=== PATIENT | female | born 1990 | race Caucasian/White ===

== ENCOUNTER 2016-06-05 15:30 | Inpatient (IN) | payer OTHER, MEDICAID ==
--- NOTE | 2016-06-05 16:17 | EDPHY ---
H & P Time Seen by Provider: 06/05/16 16:17 HPI/ROS: CHIEF COMPLAINT: Suicidal thoughts, here for evaluation for ECT HISTORY OF PRESENT ILLNESS: Patient is had previous electroconvulsive therapy. Having suicidal thoughts and not sleeping, asked to come to the emergency department by Dr. Montana for evaluation. No medical complaints except for some sneezing or runny nose from a allergies. She has a history of having manic episodes leading to possible overdose. She denies overdose today. She is worried that she is heading toward [place] and so presents for treatment. REVIEW OF SYSTEMS: Eye: no change in vision ENT: no sore throat Cardiac: no chest pain or syncope Pulmonary: no cough or SOB Abdomen: no vomiting, diarrhea, abdominal pain Musculoskeletal: no back pain Skin: no rash Neuro: no headache Constitutional: no fever : no urinary symptoms A comprehensive 10 point review of systems is otherwise negative aside from elements mentioned in the history of present illness. PAST MEDICAL HISTORY: Bipolar disorder and, depression. Tonsillectomy, cholecystectomy, cervical spine surgery in June of last year. Social history: No alcohol or drugs today. General Appearance: Alert and conversant, cooperative. Eyes: No scleral icterus. ENT, Mouth: Normal mucous membranes. Respiratory: Normal respiratory effort, breath sounds equal, lungs are clear to auscultation. Cardiovascular: Regular rate and rhythm. Gastrointestinal: Abdomen is soft and non tender. Neurological: Alert and oriented x3. Normally conversant. Face symmetric, normal movement and sensation in all extremities. Skin: Warm and dry, no rashes. Musculoskeletal: No peripheral edema and no joint swelling. Psychiatric: Not agitated. Admits to not sleeping, some suicidal ideation, no plan, no overdose, no hallucinations. Emergency Department course/MDM: Evaluated from [facility] by Laurie, plan to admit to [facility] for ECT. 1720: Patient placed on a mental health hold by myself conjunction with mental health project management consultant for racing thoughts, not sleeping, suicidal ideation. The patient will be transferred to [facility] for inpatient psychiatric hospital bed not available at this facility, in stable condition; accepting physician is Dr. Prince per Laurie. Smoking Status: Never smoked Constitutional: Initial Vital Signs Temperature (C) 36.6 C 06/05/16 15:35 Heart Rate 108 H 06/05/16 15:35 Respiratory Rate 17 06/05/16 15:35 Blood Pressure 142/91 H 06/05/16 15:35 O2 Sat (%) 96 06/05/16 15:35 O2 Delivery Mode Room Air Allergies/Adverse Reactions: ketorolac tromethamine [From Toradol] Allergy (Intermediate, Verified 06/05/16 15:34) Penicillins Allergy (Intermediate, Verified 06/05/16 15:34) sumatriptan succinate [From Imitrex] Allergy (Intermediate, Verified 06/05/16 15 :34) Home Medications: Medication Instructions Recorded Metformin HCl [Metformin 1000 mg] 1,000 mg PO BIDMEAL 09/06/15 Pantoprazole Sodium [Protonix 40mg 40 mg PO DAILY #0 tab 11/23/15 (*)] Doxepin HCl 75 mg PO HS 06/05/16 Herbals/Supplements -Info Only 1 ea PO DAILY 06/05/16 Hydrocodone/Acetaminophen [[place] 1 - 2 tab PO Q6H PRN 06/05/16 5/325 (*)] Quetiapine Fumarate [Seroquel] 800 mg PO HS 06/05/16 Medical Decision Making Differential Diagnosis: Differential diagnosis considered for depression including functional and major depression, situational depression, medication side effect, drugs and alcohol abuse. - Data Points Laboratory Results: Laboratory Results 06/05/16 16:40 06/05/16 16:40 06/05/16 06/05/16 06/05/16 16:40 16:40 16:40 WBC RBC Hgb Hct MCV MCH MCHC RDW Plt Count MPV Neut % (Auto) Lymph % (Auto) [place] % (Auto) Eos % (Auto) Baso % (Auto) Nucleat RBC Rel Count Absolute Neuts (auto) Absolute Lymphs (auto) Absolute Monos (auto) Absolute Eos (auto) Absolute Basos (auto) Absolute Nucleated RBC Immature Gran % Immature Gran # Sodium 141 mEq/L mEq/L (134-144) Potassium 4.4 mEq/L mEq/L (3.5-5.2) Chloride 104 mEq/L mEq/L (97-110) Carbon Dioxide 26 mEq/l mEq/l (22-31) Anion Gap 11 mEq/L mEq/L (8-16) BUN 10 mg/dL mg/dL (7-23) Creatinine 0.9 mg/dL mg/dL (0.6-1.0) Estimated GFR > 60 Glucose 98 mg/dL mg/dL (70-100) Calcium 10.4 mg/dL mg/dL (8.5-10.4) Beta HCG, Qual NEGATIVE Urine Test Salicylates < 1.0 mg/dL L mg/dL (2.0-20.0) Urine Opiates Screen Acetaminophen < 10 mcg/mL L mcg/mL (10.0-30.0) Urine Barbiturates Ur Phencyclidine Scrn Ur Amphetamine Screen U Benzodiazepines Scrn Urine Cocaine Screen U Marijuana (THC) Screen Ethyl Alcohol < 10 mg/dL mg/dL (0-10) 06/05/16 06/05/16 06/05/16 16:40 15:35 15:35 WBC 4.98 10^3/uL 10^3/uL (3.80-9.50) RBC 4.90 10^6/uL 10^6/uL (4.18-5.33) Hgb 14.9 g/dL g/dL (12.6-16.3) Hct 43.4 % % (38.0-47.0) MCV 88.6 fL fL (81.5-99.8) MCH 30.4 pg pg (27.9-34.1) MCHC 34.3 g/dL g/dL (32.4-36.7) RDW 12.2 % % (11.5-15.2) Plt Count 352 10^3/uL 10^3/uL (150-400) MPV 10.1 fL fL (8.7-11.7) Neut % (Auto) 55.9 % % (39.3-74.2) Lymph % (Auto) 36.3 % % (15.0-45.0) [place] % (Auto) 6.6 % % (4.5-13.0) Eos % (Auto) 0.4 % L % (0.6-7.6) Baso % (Auto) 0.6 % % (0.3-1.7) Nucleat RBC Rel Count 0.0 % % (0.0-0.2) Absolute Neuts (auto) 2.78 10^3/uL 10^3/uL (1.70-6.50) Absolute Lymphs (auto) 1.81 10^3/uL 10^3/uL (1.00-3.00) Absolute Monos (auto) 0.33 10^3/uL 10^3/uL (0.30-0.80) Absolute Eos (auto) 0.02 10^3/uL L 10^3/uL (0.03-0.40) Absolute Basos (auto) 0.03 10^3/uL 10^3/uL (0.02-0.10) Absolute Nucleated RBC 0.00 10^3/uL 10^3/uL (0-0.01) Immature Gran % 0.2 % % (0.0-1.1) Immature Gran # 0.01 10^3/uL 10^3/uL (0.00-0.10) Sodium Potassium Chloride Carbon Dioxide Anion Gap BUN Creatinine Estimated GFR Glucose Calcium Beta HCG, Qual Urine Test NEGATIVE Salicylates Urine Opiates Screen NEGATIVE (NEGATIVE) Acetaminophen Urine Barbiturates NEGATIVE (NEGATIVE) Ur Phencyclidine Scrn NEGATIVE (NEGATIVE) Ur Amphetamine Screen NEGATIVE (NEGATIVE) U Benzodiazepines Scrn NEGATIVE (NEGATIVE) Urine Cocaine Screen NEGATIVE (NEGATIVE) U Marijuana (THC) Screen NEGATIVE (NEGATIVE) Ethyl Alcohol Departure - Departure Disposition: [facility] IP Clinical Impression: Severe major depression Bipolar disorder Qualifiers: Active/Remission status: currently active Current bipolar episode type: manic Current episode severity: moderate Qualified Code(s): F31.12 - Bipolar disorder , current episode manic without psychotic features, moderate Condition: Fair Referrals: NIA HENRANDEZ [Other] - As per Instructions
[2016-06-05 17:01] LABS: ANION GAP 11 mEq/L (8-16); CALCIUM 10.4 mg/dL (8.5-10.4); CARBON DIOXIDE 26 mEq/l (22-31); CHLORIDE 104 mEq/L (97-110); CREATININE 0.9 mg/dL (0.6-1.0); ETHANOL SERUM < 10 mg/dL (0-10); GLOMERULAR FILTRATION RATE > 60; GLUCOSE 98 mg/dL (70-100); POTASSIUM 4.4 mEq/L (3.5-5.2); SODIUM 141 mEq/L (134-144)
[2016-06-05 17:10] LABS: % IMMATURE GRANULYOCYTES 0.2 % (0.0-1.1); ABSOLUTE IMMATURE GRANULOCYTES 0.01 10^3/uL (0.00-0.10); ADD DIFF? NO; ADD MORPH? NO; ADD SCAN? NO; ATYPICAL LYMPHOCYTE FLAG 10 (0-99); FRAGMENT RBC FLAG 0 (0-99); HEMATOCRIT 43.4 % (38.0-47.0); HEMOGLOBIN 14.9 g/dL (12.6-16.3); LEFT SHIFT FLG 0 (0-99); LIPEMIA HEMOLYSIS FLAG 90 (0-99); MEAN CELL HEMOGLOBIN 30.4 pg (27.9-34.1); MEAN CELL HEMOGLOBIN CONCENTR. 34.3 g/dL (32.4-36.7); MEAN CELL VOLUME 88.6 fL (81.5-99.8); MEAN PLATELET VOLUME 10.1 fL (8.7-11.7); PLATELET CLUMPS FLAG 0 (0-99); PLATELET COUNT 352 10^3/uL (150-400); RED CELL DISTRIBUTION WIDTH 12.2 % (11.5-15.2)
[2016-06-05 17:34] LABS: SALICYLATE < 1.0 mg/dL (2.0-20.0)
[2016-06-05] MEDS: metFORMIN HCL 500 MG TAB PO SCH (20:14)
[2016-06-05] MEDS ORDERED: DOXEPIN HCL 25 MG CAP PO SCH (21:00)
[2016-06-05] MEDS ORDERED: QUEtiapine FUMARATE 200 MG TAB PO SCH (21:00)
[2016-06-05] MEDS ORDERED: DOXEPIN HCL 50 MG CAP PO SCH (21:00)
[2016-06-06] MEDS: PANTOPRAZOLE SODIUM 40 MG TAB PO SCH (08:11)
[2016-06-06] MEDS: metFORMIN HCL 500 MG TAB PO SCH ×2 (08:12→17:04)
[2016-06-06] MEDS ORDERED: NS 1,000 ML IV ONE (09:58)
[2016-06-06] MEDS ORDERED: LIDOCAINE 2% 5 ML SDV ID ONE (09:58)
[2016-06-06] MEDS ORDERED: ONDANSETRON DISINTEGRATING 4 MG TAB PO ONE (09:58)
[2016-06-06] MEDS ORDERED: CITRIC ACID/SODIUM CITRATE 30 ML UDCUP PO ONE (09:58)
[2016-06-06] MEDS ORDERED: HYDROCODONE/APAP 5/325 TAB PO PRN (13:01)
[2016-06-06] MEDS ORDERED: FLUTICASONE NASAL 120 SPRAYS/16 GM MDI EACHNARE SCH (14:30)
--- NOTE | 2016-06-06 16:06 | BAPA ---
[f rep st] ADMISSION PSYCHIATRIC ASSESSMENT IDENTIFYING DATA: The patient is a 26-year-old, white, single female living with her mother in [place], who is well known to this group underwriter having treated her for maintenance ECT for approximately 4 years. Her last psychiatrist has been John Paul Cheema MD, but she may be in transition with a plan to obtain her care at [facility] nearer to her home. She has multiple prior inpatient psychiatric hospitalizations. HISTORY OF PRESENT ILLNESS: Please see the group underwriter's last admission workup dated 11/19/2015 and discharge summary dated 11/24/2015. This patient has longstanding and chronic comorbidities including bipolar illness, substance use disorder, pain disorder associated with psychological factors and general medical condition, PTSD, and cluster B personality traits. There is perhaps some factitious symptomatology in this group underwriter's opinion as well. However, she presents now reporting an increase in bipolar symptoms including global insomnia, racing thoughts, and feeling "out of control" around suicidal thinking. She does have a history of self-harm. She has been complaining over the last number of weekly maintenance ECT treatments that she has been having increasing insomnia. Her sleep is never well, but it can go from bad to worse in my experience working with her and when it does so, it is often accompanied by a sense of desperation for which she feels the only reliable remedy is acute ECT. I would agree with her that trying to find a remedy in the form of medication would be difficult as she has been on numerous combinations of high dose mood-stabilizing agents, some of those combinations having been, in this group underwriter's opinion, frankly unsafe as well. There is no clear trigger to this exacerbation situationally. She does report, however, an uptick in her nightmares that are arguably consistent with her trauma history. She reports compliance with her medication which has included Seroquel 800 mg a day, doxepin 75 mg a day, along with her Protonix, steroid nasal spray, and metformin 1000 mg b.i.d. She uses Zofran and promethazine for nausea with each ECT treatment and [place] up to 6 tablets with each treatment. She denies any change in her medical status at the moment reflective of something that could be exacerbating her central nervous system pathology. Notably, she is absent of severe daily headaches or visual changes that would be consistent with her historic diagnosis of pseudotumor cerebri. She denies substance use at the moment and urine toxicology was negative. PAST MEDICAL, PSYCHIATRIC, SOCIAL, FAMILY, AND SUBSTANCE ABUSE HISTORY: Please see prior psychiatric evaluations. MENTAL STATUS EXAM: The patient is a 26-year-old, white female who appears her stated age. Usually at her baseline, she is well groomed with great attention to hygiene and makeup but presently appears somewhat unkempt and not well dressed as usual. Her affect is more constricted with some psychomotor slowing and she has diminished eye contact and more impoverished speech which is also monotonous in tone. She is otherwise pleasant and cooperative. She does endorse suicidal ideation with vague planning around cutting or overdose. Thought processes are goal directed. There is no delusional material or hallucinations. Judgment and insight are fair. Impulse control is fair. She is alert and oriented x3 with some subjective impairment in attention and short- term memory. ADMITTING DIAGNOSIS: [place] I: Bipolar 2 disorder, mixed/depressed, without psychotic features; history of substance use disorder in remission; post-traumatic stress disorder; pain disorder associated with psychological factors and general medical condition; primary insomnia; rule out a component of factitious disorder. [place] II: Cluster B traits. [place] III: History of pseudotumor cerebri, chronic daily headache, gastroesophageal reflux disease, polycystic ovarian syndrome, asthma. IMPRESSION/RECOMMENDATION: Once again, although this patient has numerous comorbidities that make one unable to diagnose her present state with clarity, I must give "the benefit of the doubt" to this representing in part an exacerbation of her bipolar mood illness which does historically respond well to a short burst of acute ECT treatments. She does have more objective indicators as seen in mental status exam for depressed mood. Her sleep issues, however, are chronic, but they do experience true and substantial exacerbations on top of baseline poor sleep that no medication thus far has helped her with. She asserts that she has tried other behavioral interventions and sleep hygiene to no avail. Her medications as they stand have proved inadequate to prevent this relapse of symptoms or certainly aid with sleep. Given her history of a syncopal episode in this last year that to this day does not have a definitive diagnosis attached to it, I am loath to increase any of her medications, especially ones that could be arrhythmogenic such as Seroquel or doxepin. In fact, the patient is more than willing to let me reduce the dose of those medications. I will reduce Seroquel to 600 mg at night and doxepin from 75 to 25 mg. She might indeed still be a candidate for clozapine but continues to be reluctant to try that medication. /[id number]/MODL MTDD
--- NOTE | 2016-06-06 16:47 | BCON ---
[f rep st] BEHAVIORAL [facility] CONSULTATION INTERNAL MEDICINE CONSULTATION DATE OF CONSULTATION: 06/06/2016 REFERRING PHYSICIAN: Merced Prince MD REASON FOR REFERRAL: Medical clearance for inpatient advanced surgical hospital stay. HISTORY OF PRESENT ILLNESS: The patient came to the [facility] emergency department from [place] for admission to [facility] for electroconvulsive therapy, which she has regularly as an outpatient for depressive symptoms of bipolar disorder. She was having increased suicidal thoughts and her psychiatrist, Dr. Montana, thought that she should come for more ECT. She currently complains of some head congestion, which she thinks is due to seasonal allergies. [place] She usually uses fluticasone, but she did not bring it with her this time. PAST MEDICAL HISTORY: 1. Bipolar disorder. 2. Seasonal allergic rhinitis. 3. Chronic headaches. 4. Polycystic ovarian syndrome. PAST SURGICAL HISTORY: She has had a cholecystectomy, and a cervical diskectomy which failed to resolve her headaches. ALLERGIES: There are allergies listed to Toradol, penicillin, and sumatriptan. SOCIAL HISTORY: She lives with her grandmother in [place]. She has a history of alcohol abuse. She denies any tobacco use. She reports that she is on disability for bipolar disorder. FAMILY HISTORY: Noncontributory. REVIEW OF SYSTEMS: Other than symptoms of seasonal allergies, a 10-point review of systems was negative. PHYSICAL EXAMINATION: VITAL SIGNS: Blood pressure is 121/73, heart rate is 99 , respiratory rate is 16, oxygen saturation is 96% on room air. Temperature is 36.2 degrees centigrade. Her weight is 67 kg for a body mass index of 24.6. GENERAL: This is a well-nourished, well-developed woman, cooperative and in no acute distress. HEENT: Extraocular movements are intact. Pupils are equal, round, and reactive to light. Mucous membranes are moist. Dentition is in good condition. NECK: Supple. HEART: There is a regular rate and rhythm with no murmurs, rubs, or gallops. LUNGS: Clear to auscultation bilaterally. ABDOMEN: Soft, nontender, nondistended, with normoactive bowel sounds. EXTREMITIES: There is no cyanosis, clubbing, or edema. NEUROLOGIC: She is alert and oriented x3. Cranial nerves 2-12 are grossly intact. There is no focal weakness and sensation is intact to light touch. LABORATORY STUDIES: From the emergency department, CBC was overall within normal limits. She had a very slight decrement of absolute eosinophils at 0.02. Serum chemistry revealed normal renal function and electrolytes. Beta hCG was negative for in the serum as well as the urine. Toxicology screen in the urine was negative for any substances of abuse and the serum was negative for salicylates, acetaminophen, or ethyl alcohol. ASSESSMENT/RECOMMENDATIONS: 1. Mental health issues. Pending further evaluation and management per Psychiatry and the mental health team. She has had her first ECT treatment today. 2. Seasonal allergies. I will order fluticasone nasal spray, which she reports helps control these symptoms. I see no medical contraindications to the patient's continued stay in the inpatient behavioral health unit or to any psychiatric medications or procedures. Thank you very much for including me in the care of the patient, and please do not hesitate to contact me or the hospitalist service should there be need for further medical evaluation. /[id number]/MODL MTDD
[2016-06-06] MEDS: QUEtiapine FUMARATE 200 MG TAB PO SCH (17:03)
[2016-06-06] MEDS: DOXEPIN HCL 25 MG CAP PO SCH (17:17)
[2016-06-07] MEDS: FLUTICASONE NASAL 120 SPRAYS/16 GM MDI EACHNARE SCH (07:51)
[2016-06-07] MEDS: metFORMIN HCL 500 MG TAB PO SCH ×2 (07:52→17:17)
[2016-06-07] MEDS: PANTOPRAZOLE SODIUM 40 MG TAB PO SCH (07:53)
[2016-06-07] MEDS ORDERED: HYDROCODONE/APAP 5/325 TAB PO ONE (08:30)
[2016-06-07] MEDS: IBUPROFEN 600 MG TAB PO PRN (09:59)
--- NOTE | 2016-06-07 16:52 | SOAPPROG ---
SOAP Progress Note Assessment/Plan: Assessment: Plan: 06/07/16 16:53 Improving. CCM. ECT tomorrow. D/c plan per primary team. Subjective: Pt seen, discussed with staff and Dr. Montana, chart reviewed. She reports feeling better today. C/o h/a, received one dose of Amor[place] this morning. Slept well last night per staff report. Tolerated med changes well. Anticipating ECT tomorrow. She is unsure if she will be ready for d/c tomorrow. Objective: Vital Signs Temp Pulse Resp BP Pulse Ox 36.8 C 98 12 106/63 95 06/07/16 06:00 06/07/16 06:00 06/07/16 06:00 06/07/16 06:00 06/07/16 06:00 MSE: Calm, coop. Affect is blunted, stable. Mood is "pretty good." TP linear. TC reveals no psychosis. SI persists, but "less." - Time Spent With Patient Time Spent With Patient: 15" ICD10 Worksheet Patient Problems: Problems Problem Status Onset Bipolar disorder Acute Severe major depression Acute Acute electrocardiogram changes Acute Bipolar 2 disorder Acute Evaluation by medical service required Acute Narcotic overdose Acute Suicidal ideation Acute
[2016-06-07] MEDS: QUEtiapine FUMARATE 200 MG TAB PO SCH (17:17)
[2016-06-07] MEDS: DOXEPIN HCL 25 MG CAP PO SCH (17:17)
[2016-06-08] MEDS ORDERED: CITRIC ACID/SODIUM CITRATE 30 ML UDCUP PO ONE (04:00)
[2016-06-08] MEDS ORDERED: LIDOCAINE 2% 5 ML SDV ID ONE (04:00)
[2016-06-08] MEDS ORDERED: NS 1,000 ML IV ONE (04:00)
[2016-06-08] MEDS ORDERED: PROMETHAZINE HCL 25 MG TAB PO ONE (04:00)
[2016-06-08] MEDS ORDERED: ONDANSETRON DISINTEGRATING 4 MG TAB PO ONE (04:00)
[2016-06-08] MEDS ORDERED: MIDAZOLAM 2 MG/2 ML VIAL ONE (06:54)
[2016-06-08] MEDS ORDERED: fentaNYL 100 MCG/2 ML INJ ONE (06:54)
[2016-06-08] MEDS ORDERED: KETAMINE 100 MG/10 ML SYR IVP ONE (06:55)
[2016-06-08] MEDS ORDERED: LORazepam 2 MG/ML INJ ONE (06:56)
[2016-06-08] MEDS ORDERED: ONDANSETRON 4 MG/2 ML VIAL ONE (06:56)
[2016-06-08] MEDS ORDERED: PROMETHAZINE HCL 25 MG TAB PO PRN (11:14)
--- NOTE | 2016-06-08 11:34 | SOAPPROG ---
SOAP Progress Note Assessment/Plan: Assessment: Bipolar II, mixed. H/o Substance Use disorder, PTSD; Cluster B traits; r/o Pain D/O; R/o factitious d/o Plan:Pt tolerated reduction in seroquel and doxepin with only c/o being a bit of increase in sleep latency, but actually slept better, likely due to the salubrious effects of monday's ECT. Hdez is down today to mid 20s. Still endorsing SI but less intense .Will plan to do one more acute ECT on monday. 06/08/16 11:21 Objective: Vital Signs Temp Pulse Resp BP Pulse Ox 36.7 C 88 14 115/72 100 06/08/16 06:00 06/08/16 06:00 06/08/16 06:00 06/08/16 06:00 06/08/16 06:00 ICD10 Worksheet Patient Problems: Problems Problem Status Onset Bipolar disorder Acute Severe major depression Acute Acute electrocardiogram changes Acute Bipolar 2 disorder Acute Evaluation by medical service required Acute Narcotic overdose Acute Suicidal ideation Acute
[2016-06-08] MEDS: PANTOPRAZOLE SODIUM 40 MG TAB PO SCH (13:32)
[2016-06-08] MEDS: metFORMIN HCL 500 MG TAB PO SCH ×2 (13:32→17:14)
[2016-06-08] MEDS: FLUTICASONE NASAL 120 SPRAYS/16 GM MDI EACHNARE SCH (14:05)
[2016-06-08] MEDS: HYDROCODONE/APAP 5/325 TAB PO PRN (16:05)
[2016-06-08] MEDS: DOXEPIN HCL 25 MG CAP PO SCH (18:57)
[2016-06-08] MEDS: QUEtiapine FUMARATE 200 MG TAB PO SCH (18:57)
[2016-06-09] MEDS: metFORMIN HCL 500 MG TAB PO SCH ×2 (08:40→18:42)
[2016-06-09] MEDS: FLUTICASONE NASAL 120 SPRAYS/16 GM MDI EACHNARE SCH (08:41)
[2016-06-09] MEDS: PANTOPRAZOLE SODIUM 40 MG TAB PO SCH (08:41)
[2016-06-09] MEDS: HYDROCODONE/APAP 5/325 TAB PO PRN (08:44)
--- NOTE | 2016-06-09 13:26 | SOAPPROG ---
SOAP Progress Note Assessment/Plan: Assessment: Bipolar II, mixed. H/o Substance Use disorder, PTSD; Cluster B traits; r/o Pain D/O; R/o factitious d/o Plan:Pt tolerated reduction in seroquel and doxepin with only c/o being a bit of increase in sleep latency, but actually slept better, likely due to the salubrious effects of monday's ECT. Hdez is down today to mid 20s. Still endorsing SI but less intense .Will plan to do one more acute ECT on monday. 06/08/16 11:21 06/09/16 13:24 Pt interviewed while walking on unit. She had improved sleep, despite decrease in meds, declaring ECT to be the reason for change. Decreased SI, brightening of her contsricted affect. Wishes to undergo one more ECT then d/c home with plans to resume her weekly ECT. Objective: Vital Signs Temp Pulse Resp BP Pulse Ox 36.4 C 81 15 107/61 98 06/09/16 06:00 06/09/16 06:00 06/09/16 06:00 06/09/16 06:00 06/09/16 06:00 ICD10 Worksheet Patient Problems: Problems Problem Status Onset Bipolar disorder Acute Severe major depression Acute Acute electrocardiogram changes Acute Bipolar 2 disorder Acute Evaluation by medical service required Acute Narcotic overdose Acute Suicidal ideation Acute
[2016-06-09] MEDS: IBUPROFEN 600 MG TAB PO PRN (14:35)
[2016-06-09] MEDS: QUEtiapine FUMARATE 200 MG TAB PO SCH (18:42)
[2016-06-09] MEDS: DOXEPIN HCL 25 MG CAP PO SCH (18:46)
[2016-06-09] MEDS ORDERED: ONDANSETRON DISINTEGRATING 4 MG TAB PO ONE (19:00)
[2016-06-10] MEDS ORDERED: PROMETHAZINE HCL 25 MG TAB PO ONE (04:00)
[2016-06-10] MEDS ORDERED: ONDANSETRON DISINTEGRATING 4 MG TAB PO ONE (04:00)
[2016-06-10] MEDS ORDERED: NS 1,000 ML IV ONE (04:00)
[2016-06-10] MEDS ORDERED: LIDOCAINE 2% 5 ML SDV ID ONE (04:00)
[2016-06-10] MEDS ORDERED: CITRIC ACID/SODIUM CITRATE 30 ML UDCUP PO ONE (04:00)
[2016-06-10] MEDS ORDERED: PROMETHAZINE HCL 25 MG TAB ONE (08:33)
[2016-06-10] MEDS ORDERED: ONDANSETRON DISINTEGRATING 4 MG TAB ONE (08:33)
[2016-06-10] MEDS ORDERED: CITRIC ACID/SODIUM CITRATE 30 ML UDCUP ONE (08:34)
[2016-06-10] MEDS ORDERED: PROMETHAZINE HCL 25 MG TAB PO PRN (09:02)
[2016-06-10] MEDS ORDERED: HYDROCODONE/APAP 5/325 TAB PO PRN (09:02)
[2016-06-10] MEDS ORDERED: ONDANSETRON DISINTEGRATING 4 MG TAB PO PRN (09:02)
[2016-06-10] MEDS ORDERED: HYDROCODONE/APAP 5/325 TAB ONE (09:53)
[2016-06-10] MEDS: PANTOPRAZOLE SODIUM 40 MG TAB PO SCH (09:54)
[2016-06-10] MEDS: metFORMIN HCL 500 MG TAB PO SCH (09:54)
[2016-06-10 10:33] VITALS: RESP 14; TEMP 97.5
[2016-06-10] MEDS: FLUTICASONE NASAL 120 SPRAYS/16 GM MDI EACHNARE SCH (11:23)
--- NOTE | 2016-06-10 11:24 | BDS ---
[f rep st] BEHAVIORAL HEALTH DISCHARGE SUMMARY IDENTIFYING DATA: The patient is a 26-year-old white single female, living with her mother in [place], who is well-known to this jingle writer, having treated her for maintenance ECT for approximatel y 4 years. Her last psychiatrist had been John Paul Cheema MD. She has had multiple prior inpatient ps ychiatric hospitalizations. She was admitted on 06/05/2016, and discharged today 06/10/2016. REASON FOR ADMISSION: The patient reports an increase in bipolar symptoms including global insomnia , racing thoughts, and feeling out of control around suicidal thinking. She does have a history of s elf-harm and suicide attempts. Medications have historically not aided her when she has had these ex acerbations, and indeed the jingle writer has expressed to her that she is on, in my opinion, too high of d osages of medications, some of which could have contributed to a syncopal event a number of months a go. We determined that we would use the hospitalization for brief course of acute ECT and to reduce some of those medications. History and physical provided by Vlad Almanza, which revealed: 1. Mental health issues. 2. Seasonal allergies. I will order fluticasone nasal spray. LABORATORY DATA: Routine lab work: Patient's CBC and biochemical profile were within normal limits, beta HCG was negative. Urine toxicology was negative. HOSPITAL COURSE: It was decided that her Seroquel at 800 mg should be reduced to 600 given its meta bolic side effects and its effects on QT interval. Likewise, doxepin was at 75 mg per her outpatient psychiatrist, who she will probably no longer be seeing. The jingle writer also was concerned about arrhyt hmogenic effects of that medication, and it is more than an ideal sleeper with pure antihistamine ef fects at a lower dose such as 25 mg, hence, this medication was reduced to 25 mg. We then proceeded to do 3 acute ECTs during this stay. Even after her first treatment she reported a reduction in suic idal intensity, and reduction in middle insomnia. She is still having trouble falling asleep, but wa s more able to stay asleep. This persisted and improved over the week. Racing thoughts and agitation improved. DISCHARGE MEDICATIONS: Doxepin 25 mg p.o. at bedtime, Craig 5/325, 1-2 tablets p.o. q.4 hours p.r.n . headache on ECT days, Phenergan 25 mg p.o. q.6 hours p.r.n. nausea or vomiting on ECT days, pantop razole 40 mg p.o. daily, Seroquel 600 mg p.o. at bedtime. DISPOSITION: The patient will return home to [place] where her mother lives. She will need 2 4/7 supervision for at least 2-3 days given a short course of acute treatments that may have impaire d cognition. I would have her not drive for up to a week. She is to return for her next maintenance ECT treatment in 5 days, on Monday, June 15, 2016. DISCHARGE DIAGNOSES: [place] I: Bipolar 2 disorder, mixed/depressed, without psychotic features; history of substance use di [place], in remission. Posttraumatic stress disorder, pain disorder associated with psychological fac tors and general medical condition. Primary insomnia, rule out component of factitious disorder. [place] II: Cluster B traits. [place] III: History of pseudotumor cerebri, chronic daily headache, gastroesophageal reflux disease, p olycystic ovarian syndrome, and asthma. /[id number]/MODL
[2016-06-10 11:38] VITALS: BP 128/75; PULSE 103; O2SAT 99
== END 2016-06-10 11:35 | disposition home or self-care (01) | DRG 885 ==
LOC: BBEH 19:37
PROVIDERS: ADMIT Psychiatry & Neurology Psychiatry; ATTEND Psychiatry & Neurology Psychiatry
PROC: GZB4ZZZ Other Electroconvulsive Therapy (ICD-10-PCS; principal; 2016-06-05)
DX: F31.60 Bipolar disorder, current episode mixed, unspecified (principal); J30.2 Other seasonal allergic rhinitis; E28.2 Polycystic ovarian syndrome
CPT/HCPCS: 80305; G0480; J1200; J2060; J2250; J2405; J3010

== ENCOUNTER 2016-08-21 12:09 | Inpatient (IN) | payer OTHER, MEDICAID ==
[2016-08-21 12:53] LABS: % IMMATURE GRANULYOCYTES 0.2 % (0.0-1.1); ABSOLUTE IMMATURE GRANULOCYTES 0.01 10^3/uL (0.00-0.10); ADD DIFF? NO; ADD MORPH? NO; ADD SCAN? NO; ATYPICAL LYMPHOCYTE FLAG 10 (0-99); FRAGMENT RBC FLAG 0 (0-99); HEMATOCRIT 41.9 % (38.0-47.0); HEMOGLOBIN 14.7 g/dL (12.6-16.3); LEFT SHIFT FLG 0 (0-99); LIPEMIA HEMOLYSIS FLAG 90 (0-99); MEAN CELL HEMOGLOBIN 31.7 pg (27.9-34.1); MEAN CELL HEMOGLOBIN CONCENTR. 35.1 g/dL (32.4-36.7); MEAN CELL VOLUME 90.3 fL (81.5-99.8); MEAN PLATELET VOLUME 9.9 fL (8.7-11.7); PLATELET CLUMPS FLAG 0 (0-99); PLATELET COUNT 334 10^3/uL (150-400); RED BLOOD CELL COUNT 4.64 10^6/uL (4.18-5.33)
[2016-08-21 13:02] LABS: ANION GAP 14 mEq/L (8-16); CALCIUM 9.8 mg/dL (8.5-10.4); CARBON DIOXIDE 22 mEq/l (22-31); CHLORIDE 102 mEq/L (97-110); CREATININE 0.8 mg/dL (0.6-1.0); ETHANOL SERUM < 10 mg/dL (0-10); GLOMERULAR FILTRATION RATE > 60; GLUCOSE 101 mg/dL (70-100); SODIUM 138 mEq/L (134-144)
--- NOTE | 2016-08-21 15:42 | EDPHY ---
H & P Stated Complaint: SI/had ECT monday - Personal History LMP (Females 10-55): 1-7 Days Ago Current Tetanus/Diphtheria Vaccine: Yes Tetanus Vaccine Date: 2010 - Medical/Surgical History Hx Asthma: No Hx Chronic Respiratory Disease: No Hx Diabetes: No Hx Cardiac Disease: No Hx Renal Disease: No Hx Cirrhosis: No Hx Alcoholism: No Hx HIV/AIDS: No Hx Splenectomy or Spleen Trauma: No Other PMH: PMH: bipolar, depression, Headaches. PSH: tonsils, cholecystectomy . Cervical discectomy 06/24/15 - Social History Smoking Status: Never smoked HPI/ROS: Chief complaint: Suicidal ideation History of present illness: This is a 26-year-old female with a history of bipolar disease who presents to the emergency department for suicidal ideation. Patient reports she has had increasing thoughts of suicide over the last few days. She has no specific plan. She has not acted upon the thoughts. She has had suicidal ideation in the past and has required hospitalization. She denies homicidal ideation. She denies illness or injury. She is currently under therapy for bipolar and recently had ECT this last week which she feels is helping her. Review of systems: A 10 point review of systems was obtained and other than described above was negative (Chan Irizarry) - Physical Exam Exam: General Appearance: Alert, nontoxic. Eyes: Pupils equal and round no pallor or injection. ENT, Mouth: Mucous membranes moist. Respiratory: There are no retractions, lungs are clear to auscultation. Cardiovascular: Regular rate and rhythm. Gastrointestinal: Abdomen is soft and non tender, no masses, bowel sounds normal. Neurological: Alert and oriented x4. Strength and sensation intact and symmetrical. Skin: Warm and dry, no rashes. Musculoskeletal: Neck is supple non tender. Extremities are symmetrical, full range of motion. Psychiatric: Patient is oriented X 3, there is no agitation. (Chan Irizarry) Constitutional: Initial Vital Signs Temperature (C) 36.8 C 08/21/16 12:23 Heart Rate 99 08/21/16 12:23 Respiratory Rate 18 08/21/16 12:23 Blood Pressure 132/86 H 08/21/16 12:23 O2 Sat (%) 100 08/21/16 12:23 O2 Delivery Mode Room Air Allergies/Adverse Reactions: ketorolac tromethamine [From Toradol] Allergy (Intermediate, Verified 08/21/16 12:22) Penicillins Allergy (Intermediate, Verified 08/21/16 12:22) sumatriptan succinate [From Imitrex] Allergy (Intermediate, Verified 08/21/16 12 :22) Home Medications: Medication Instructions Recorded Metformin HCl [Metformin 1000 mg] 1,000 mg PO BIDMEAL 09/06/15 Pantoprazole Sodium [Protonix 40mg 40 mg PO DAILY #0 tab 11/23/15 (*)] Herbals/Supplements -Info Only 1 ea PO DAILY 06/05/16 Doxepin HCl [SINEquan] 25 mg PO HS #30 cap 06/10/16 Fluticasone Nasal [Flonase Nasal 1 sprays EACHNARE DAILY #0 mdi 06/10/16 [place]] Hydrocodone/Acetaminophen [[place] 1 - 2 tab PO Q6H PRN #6 tablet 06/10/16 5/325 (*)] Ondansetron Odt [Zofran Odt 4 mg 4 mg PO Q6HRS PRN #0 tab 06/10/16 (*)] Pantoprazole Sodium [Protonix 40mg 40 mg PO DAILY #0 tab 06/10/16 (*)] QUEtiapine FUMARATE [Seroquel 200 600 mg PO HS #60 tab 06/10/16 mg (*)] metFORMIN HCL [Glucophage 500 mg 1,000 mg PO BIDMEAL #0 tab 06/10/16 (*)] Medical Decision Making ED Course/Re-evaluation: Patient is seen under the supervision of my primary supervising physician Dr. Kamryn Salazar. Patient presents to the emergency department for suicidal ideation without plan. She is nontoxic. She is medically cleared for psychiatric evaluation, this is pending at time of dictation. Care of patient is turned over to my attending physician Dr. Misha Castro at end of shift. (Chan Irizarry) Differential Diagnosis: Included but not limited to bipolar, depression, schizophrenia, substance abuse (Chan Irizarry) Other Provider: PHYSICIAN DOCUMENTATION: The patient was evaluated and managed by the Physician Finishing Department Supervisor and myself. I have reviewed the chart and agree with the findings and plan of care as documented. In addition, I examined the patient myself at 1805. History confirmed as history of bipolar, ECT 1 week ago, increasing insomnia. Physical findings as follows: Cooperative, fluent speech. Placed on a mental health hold at 4:30 p.m. by the psychiatric boiler fireman, plan to transfer to [address] [place] [address]. 1844: The patient will be transferred to [facility] for inpatient psychiatric hospital bed not available at this facility, in stable condition; accepting physician is Dr. Smith. I am the secondary supervising physician. (Misha Castro) - Data Points Laboratory Results: Laboratory Results 08/21/16 12:34 08/21/16 12:34 08/21/16 08/21/16 08/21/16 12:34 12:34 12:34 WBC RBC Hgb Hct MCV MCH MCHC RDW Plt Count MPV Neut % (Auto) Lymph % (Auto) Jones % (Auto) Eos % (Auto) Baso % (Auto) Nucleat RBC Rel Count Absolute Neuts (auto) Absolute Lymphs (auto) Absolute Monos (auto) Absolute Eos (auto) Absolute Basos (auto) Absolute Nucleated RBC Immature Gran % Immature Gran # Sodium 138 mEq/L mEq/L (134-144) Potassium 4.0 mEq/L mEq/L (3.5-5.2) Chloride 102 mEq/L mEq/L (97-110) Carbon Dioxide 22 mEq/l mEq/l (22-31) Anion Gap 14 mEq/L mEq/L (8-16) BUN 6 mg/dL L mg/dL (7-23) Creatinine 0.8 mg/dL mg/dL (0.6-1.0) Estimated GFR > 60 Glucose 101 mg/dL H mg/dL (70-100) Calcium 9.8 mg/dL mg/dL (8.5-10.4) Beta HCG, Qual NEGATIVE Urine Opiates Screen NEGATIVE (NEGATIVE) Urine Barbiturates NEGATIVE (NEGATIVE) Ur Phencyclidine Scrn NEGATIVE (NEGATIVE) Ur Amphetamine Screen NEGATIVE (NEGATIVE) U Benzodiazepines Scrn NEGATIVE (NEGATIVE) Urine Cocaine Screen NEGATIVE (NEGATIVE) U Marijuana (THC) Screen NEGATIVE (NEGATIVE) Ethyl Alcohol < 10 mg/dL mg/dL (0-10) 08/21/16 12:34 WBC 5.50 10^3/uL 10^3/uL (3.80-9.50) RBC 4.64 10^6/uL 10^6/uL (4.18-5.33) Hgb 14.7 g/dL g/dL (12.6-16.3) Hct 41.9 % % (38.0-47.0) MCV 90.3 fL fL (81.5-99.8) MCH 31.7 pg pg (27.9-34.1) MCHC 35.1 g/dL g/dL (32.4-36.7) RDW 12.0 % % (11.5-15.2) Plt Count 334 10^3/uL 10^3/uL (150-400) MPV 9.9 fL fL (8.7-11.7) Neut % (Auto) 73.7 % % (39.3-74.2) Lymph % (Auto) 19.3 % % (15.0-45.0) Jones % (Auto) 6.4 % % (4.5-13.0) Eos % (Auto) 0.0 % L % (0.6-7.6) Baso % (Auto) 0.4 % % (0.3-1.7) Nucleat RBC Rel Count 0.0 % % (0.0-0.2) Absolute Neuts (auto) 4.06 10^3/uL 10^3/uL (1.70-6.50) Absolute Lymphs (auto) 1.06 10^3/uL 10^3/uL (1.00-3.00) Absolute Monos (auto) 0.35 10^3/uL 10^3/uL (0.30-0.80) Absolute Eos (auto) 0.00 10^3/uL L 10^3/uL (0.03-0.40) Absolute Basos (auto) 0.02 10^3/uL 10^3/uL (0.02-0.10) Absolute Nucleated RBC 0.00 10^3/uL 10^3/uL (0-0.01) Immature Gran % 0.2 % % (0.0-1.1) Immature Gran # 0.01 10^3/uL 10^3/uL (0.00-0.10) Sodium Potassium Chloride Carbon Dioxide Anion Gap BUN Creatinine Estimated GFR Glucose Calcium Beta HCG, Qual Urine Opiates Screen Urine Barbiturates Ur Phencyclidine Scrn Ur Amphetamine Screen U Benzodiazepines Scrn Urine Cocaine Screen U Marijuana (THC) Screen Ethyl Alcohol Departure - Departure Disposition: [facility] IP Clinical Impression: Bipolar disorder Qualifiers: Active/Remission status: currently active Current bipolar episode type: depressed Current episode severity: severe Psychotic features: without psychotic features Qualified Code(s): F31.4 - Bipolar disorder, current episode depressed, severe, without psychotic features Condition: Good Referrals: [facility] [Other] - As per Instructions
[2016-08-21] MEDS ORDERED: LORazepam 0.5 MG TAB PO PRN (22:39)
[2016-08-21] MEDS ORDERED: NICOTINE POLACRILEX 2 MG GUM B PRN (22:39)
[2016-08-21] MEDS ORDERED: MAG HYDROX/AL HYDROX/SIMETH 30 ML UDCUP PO PRN (22:39)
[2016-08-21] MEDS ORDERED: MAGNESIUM HYDROXIDE 30 ML UDCUP PO PRN (22:39)
[2016-08-21] MEDS ORDERED: ONDANSETRON DISINTEGRATING 4 MG TAB PO PRN (22:41)
[2016-08-21] MEDS ORDERED: DOXEPIN HCL 25 MG CAP PO SCH (22:45)
[2016-08-21] MEDS ORDERED: QUEtiapine FUMARATE 300 MG TAB PO SCH (22:45)
[2016-08-22] MEDS ORDERED: NS 1,000 ML IV ONE (07:00)
[2016-08-22] MEDS ORDERED: LIDOCAINE 2% 5 ML SDV ID ONE (07:00)
[2016-08-22] MEDS ORDERED: CITRIC ACID/SODIUM CITRATE 30 ML UDCUP PO ONE (07:00)
[2016-08-22] MEDS ORDERED: ONDANSETRON DISINTEGRATING 4 MG TAB PO ONE (07:00)
[2016-08-22] MEDS ORDERED: MIDAZOLAM 2 MG/2 ML VIAL ONE (07:52)
[2016-08-22] MEDS ORDERED: fentaNYL 100 MCG/2 ML INJ ONE (07:52)
[2016-08-22] MEDS ORDERED: ONDANSETRON 4 MG/2 ML VIAL ONE (07:52)
[2016-08-22] MEDS ORDERED: GLYCOPYRROLATE 0.2 MG/1 ML VIAL ONE (07:52)
[2016-08-22] MEDS ORDERED: ROCURONIUM 50 MG/5 ML VIAL ONE (07:53)
[2016-08-22] MEDS ORDERED: SUCCINYLCHOLINE CHLORIDE 200 MG/10 ML VIAL ONE (07:53)
[2016-08-22] MEDS ORDERED: LORazepam 2 MG/ML INJ ONE (07:53)
[2016-08-22] MEDS ORDERED: PROPOFOL 200 MG/20 ML VIAL ONE (07:53)
[2016-08-22] MEDS ORDERED: ETOMIDATE 20 MG/10 ML VIAL ONE (07:53)
[2016-08-22] MEDS: metFORMIN HCL 500 MG TAB PO SCH ×2 (08:08→17:06)
[2016-08-22] MEDS: PANTOPRAZOLE SODIUM 40 MG TAB PO SCH (08:09)
[2016-08-22] MEDS ORDERED: FLUTICASONE NASAL 120 SPRAYS/16 GM MDI EACHNARE SCH (09:00)
[2016-08-22] MEDS: FLUTICASONE NASAL 120 SPRAYS/16 GM MDI EACHNARE SCH (13:53)
[2016-08-22] MEDS: DOXEPIN HCL 25 MG CAP PO SCH (17:06)
[2016-08-22] MEDS: QUEtiapine FUMARATE 300 MG TAB PO SCH (17:07)
[2016-08-22] MEDS: BELSOMRA PO SCH (17:07)
--- NOTE | 2016-08-22 21:29 | BCON ---
[f rep ] BEHAVIORAL HEALTH CONSULTATION INTERNAL MEDICINE CONSULTATION DATE OF CONSULTATION: 08/22/2016 REFERRING PHYSICIAN: Dr. James REASON FOR REFERRAL: Medical clearance for inpatient behavioral health stay. HISTORY OF PRESENT ILLNESS: The patient is receiving maintenance electroconvulsive therapy for bipolar disorder and she had 2 nights in which she could not sleep and was thus advised by her psychiatrist, Dr. Montana, to come to the inpatient behavioral health unit where she will be safe from developing any suicidal ideation. She presented to the emergency department with suicidal ideation and was admitted for further psychiatric care. She currently reports that she is beginning her menstrual period and would like to have a tampon, and she reports she has a headache due to poor sleep. PAST MEDICAL HISTORY: 1. Bipolar disorder. 2. Seasonal allergic rhinitis. 3. Chronic headaches. 4. Polycystic ovarian syndrome. 5. History of peptic ulcers. PAST SURGICAL HISTORY: She reports she has had a cholecystectomy, a cervical diskectomy, and a tonsillectomy. MEDICATIONS AT HOME: 1. Pantoprazole 40 mg p.o. daily. 2. Ondansetron 4 mg p.o. q.6 hours p.r.n. 3. Fluticasone nasal spray, 1 spray each naris daily. 4. Doxepin 25 mg p.o. at bedtime. 5. Metformin 1000 mg p.o. b.i.d. with meals. 6. Quetiapine 600 mg p.o. at bedtime. 7. Magnesium supplement 1 p.o. daily. ALLERGIES: Listed to Toradol, penicillin and sumatriptan. SOCIAL HISTORY: She lives with her grandmother in [place]. She has a history of alcohol abuse. She is a nonsmoker. She reports that she is on disability for bipolar disorder. FAMILY HISTORY: Noncontributory. REVIEW OF SYSTEMS: Other than as in HPI, she denies cough, dyspnea, pain, fevers, chills, weight gain, weight loss, dysuria or urinary frequency, nausea, vomiting, constipation or diarrhea. Otherwise, a 10-point review of systems is negative. PHYSICAL EXAMINATION: VITAL SIGNS: Blood pressure at 6 o'clock this morning was 102/62, heart rate was 94, respiratory rate was 14, oxygen saturation was 96 % on room air. Temperature was 36.5 degrees centigrade. Her weight was 65.8 kg for a body mass index of 24.1. GENERAL: This is a well-nourished, well- developed woman who appears her chronologic age, cooperative and in no acute distress. HEENT: Extraocular movements are intact. Pupils are equal, round, and reactive to light. Mucous membranes are moist. Dentition is in good condition. NECK: Supple with no thyromegaly. HEART: Regular rate and rhythm with no murmurs, rubs, or gallops. LUNGS: Clear to auscultation bilaterally. ABDOMEN: Soft, nontender, nondistended with normoactive bowel sounds. EXTREMITIES: There is no cyanosis, clubbing, or edema. NEUROLOGIC: She is alert and oriented x3. Cranial nerves 2-12 are grossly intact. There is no focal weakness and sensation is intact to light touch. LABORATORY STUDIES: Laboratory studies drawn in the emergency room: CBC was overall within normal limits but for a decrement of absolute eosinophilic of no clinical significance. Serum chemistry revealed a low BUN at 0.6 and a slightly high glucose at 101. Otherwise, renal function and electrolytes were within normal limits. Beta-hCG was negative for . Toxicology screen in the serum was negative for ethyl alcohol, and in the urine was negative for any substances of abuse. ASSESSMENT/RECOMMENDATIONS: 1. Mental health issues, pending further evaluation and management per Psychiatry and the mental health team. 2. Polycystic ovarian syndrome. Would continue metformin. 3. Headaches. Acetaminophen has been ordered and it would be appropriate to continue. 4. History of peptic ulcer disease. Continue pantoprazole. I see no medical contraindications to the patient's continued stay on the inpatient behavioral health unit or to any psychiatric medications or procedures. Thank you very much for including me in the care of this patient, and please do not hesitate to contact me or the hospitalist service should there be need for further medical evaluation. /[id number]/MODL MTDD
[2016-08-23] MEDS: ACETAMINOPHEN 325 MG TAB PO PRN ×2 (08:05→15:36)
[2016-08-23] MEDS: PANTOPRAZOLE SODIUM 40 MG TAB PO SCH (08:15)
[2016-08-23] MEDS: metFORMIN HCL 500 MG TAB PO SCH ×2 (08:15→17:07)
[2016-08-23] MEDS: MAGNESIUM OXIDE 400 MG TAB PO SCH (11:37)
[2016-08-23] MEDS: FLUTICASONE NASAL 120 SPRAYS/16 GM MDI EACHNARE SCH (12:29)
[2016-08-23] MEDS: DOXEPIN HCL 25 MG CAP PO SCH (17:00)
[2016-08-23] MEDS: QUEtiapine FUMARATE 300 MG TAB PO SCH (17:00)
[2016-08-23] MEDS: BELSOMRA PO SCH (17:01)
--- NOTE | 2016-08-23 17:36 | SOAPPROG ---
TUSHAR Progress Note Assessment/Plan: Assessment: Plan: 08/23/16 17:36 Improving. Will CCM, consider adding lamotrigine. ECT tomorrow. Subjective: Pt seen, discussed with staff. Reports feeling "better" today. Slept between 5 and 9 hours yesterday. She asks about possible new medications. We reviewed options including lamotrigine and her mother suggests clozapine. I communicated with Dr. Montana who questions the primacy of the mood disorder in her overall presentation. I share this concern. Objective: Vital Signs Temp Pulse Resp BP Pulse Ox 36.6 C 84 14 112/56 L 97 08/23/16 06:00 08/23/16 06:00 08/23/16 06:00 08/23/16 06:00 08/23/16 06:00 MSE: Calm, coop. Affect is euthymic, stable, approp. Mood is "better." TP linear. TC reveals no psychosis. No SI. - Time Spent With Patient Time Spent With Patient: 25" ICD10 Worksheet Patient Problems: Problems Problem Status Onset Bipolar disorder Acute Acute electrocardiogram changes Acute Bipolar 2 disorder Acute Evaluation by medical service required Acute Narcotic overdose Acute Severe major depression Acute Suicidal ideation Acute
--- NOTE | 2016-08-23 20:02 | BAPA ---
[f rep st] ADMISSION PSYCHIATRIC ASSESSMENT DATE OF SERVICE: 08/21/2016 CHIEF COMPLAINT: "I couldn't sleep and was afraid I was going manic." HISTORY OF PRESENT ILLNESS: This patient is a 26-year-old female with a history of bipolar disorder characterized by primarily treatment- resistant depression but also some intermittent, rather abrupt mood variability. She will often begin to experience decreased sleep and then will notice what she experiences as hypomanic or manic symptoms. She is undergoing long-term outpatient maintenance ECT with Dr. Montana. Her psychiatrist recently moved, and Dr. Montana has been managing her medicines with her primary care physician. The patient questions whether she needs additional medication at this time to help better stabilize her moods, as she states that the variability seems to be becoming more frequent. She does note that this is the summer, in general the anniversary of some traumas for her, and that these are typically triggering and lead to disrupted sleep. She actually got in a car and drove to our emergency department from [place] on Monday, the day prior to admission, to seek treatment because she felt unsafe. She states "I know if I kept not sleeping I would become suicidal." PAST PSYCHIATRIC HISTORY: Significant for previous admissions under similar circumstances, the last being in June of this year from 06/05/2016 to 2016. She is, again, a long-term maintenance outpatient ECT patient of Dr. Srinivas Montana's and is on the waiting list at [facility] in [place] for a new outpatient medication provider. ALLERGIES: Ketorolac, penicillin, and sumatriptan. CURRENT MEDICATIONS: Doxepin 25 mg h.s., Flonase nasal spray 1 spray daily each side, magnesium oxide 400 mg daily, metformin 1000 mg twice daily, Protonix 40 mg daily, and Seroquel 600 mg at bedtime. PAST MEDICAL HISTORY: Significant for a past history of chronic headaches (but not for some time) and GERD. SOCIAL HISTORY: Patient lives with her mother and grandmother in [place], [place]. She is disabled due to her psychiatric condition. She is the primary caregiver for her grandmother, who has dementia. Her mother works at the local [employer]. Patient notes no others recent stresses or traumas. She states she has a group of friends with whom she is active and likes to go to the [place] to either sunbathe or boat, and will also inner-tube in the river frequently. They have a pool at home, where she likes to swim and layout as well. SUBSTANCE ABUSE HISTORY: Noncontributory for illicit substances at this time. FAMILY HISTORY: Documented elsewhere. ADMISSION LABORATORY: CBC is normal. Serum chemistries are normal. Urine drug screen is negative for all substances. Alcohol is less than detectable. MENTAL STATUS EXAMINATION: A healthy appearing, well-groomed, appropriately- dressed female. She interacts well with the examiner, displaying good eye contact and overall calm and pleasant demeanor. Her affect is euthymic , stable, and appropriate. Her mood is described as "depressed." Her thought process is linear and goal directed. Her thought content reveals no evidence of psychosis. She is alert and oriented to person, place, time, and situation, and her sensorium is clear. Her intellect appears to be average, as evidenced by her educational and occupational history, fund of knowledge, and vocabulary. She continues to endorse some passive suicidality, stating that she cannot live if she cannot sleep, but denies any active intent to harm herself at this time. Her insight and judgment appear to be fair. IMPRESSION: Bipolar 1 disorder, most recent episode, depressed; moderate, with treatment-resistant features, chronic illness and family conflict, and phase of life issues related to relationships. Patient is a 26-year-old female with history of bipolar disorder. She is, at this time, in crisis due to what she believes is a burgeoning manic episode. She is not sleeping, though it seems to be disrupted sleep rather than decreased need for sleep, and could possibly, if not likely, be more linked to her traumatic history. Regardless, she feels unsafe at this time so will admit her to the hospital and continue her once weekly ECT as dictated by her ongoing treatment plan with Dr. Montana. It seems important is set this limit with her, as we attempt to sort out the physiologic from psychologic, and I believe this likely is more in the realm of her traumatic experiences. She is looking for a prescriber and wants to review her medications. I discussed with her the potential addition of a secondary mood stabilizer, such as Lamictal. She has called her mother who told her that the Lamictal was not helpful to her in the past and suggested she try Clozaril. I have indicated to her that any decision like that would need to be made between her and Dr. Montana , and we will defer at this time. Will continue her previous outpatient medications. ESTIMATED LENGTH OF STAY: 3-5 days. /[id number]/MODL MTDD
[2016-08-24] MEDS ORDERED: LIDOCAINE 2% 5 ML SDV ID ONE (05:00)
[2016-08-24] MEDS ORDERED: CITRIC ACID/SODIUM CITRATE 30 ML UDCUP PO ONE (05:00)
[2016-08-24] MEDS ORDERED: NS 1,000 ML IV ONE (05:00)
[2016-08-24] MEDS ORDERED: ONDANSETRON DISINTEGRATING 4 MG TAB PO ONE (05:00)
[2016-08-24] MEDS: PANTOPRAZOLE SODIUM 40 MG TAB PO SCH (06:58)
[2016-08-24] MEDS ORDERED: PROMETHAZINE HCL 25 MG TAB ONE (07:43)
[2016-08-24] MEDS ORDERED: ONDANSETRON DISINTEGRATING 4 MG TAB ONE (07:43)
[2016-08-24] MEDS ORDERED: CITRIC ACID/SODIUM CITRATE 30 ML UDCUP ONE (07:43)
[2016-08-24] MEDS ORDERED: HYDROCODONE/APAP 5/325 TAB ONE (08:36)
[2016-08-24] MEDS ORDERED: HYDROCODONE/APAP 5/325 TAB PO PRN (08:38)
[2016-08-24] MEDS: MAGNESIUM OXIDE 400 MG TAB PO SCH (09:20)
[2016-08-24] MEDS: metFORMIN HCL 500 MG TAB PO SCH ×2 (09:20→17:26)
[2016-08-24] MEDS: FLUTICASONE NASAL 120 SPRAYS/16 GM MDI EACHNARE SCH ×2 (13:23→15:47)
--- NOTE | 2016-08-24 16:10 | SOAPPROG ---
SOMIRNA Progress Note Assessment/Plan: Assessment: Plan: 08/23/16 17:36 Improving. Will CCM, consider adding lamotrigine. ECT tomorrow. 08/24/16 16:11 Some improvement. Remains tenuous. Will start prazosin, monitor. Subjective: Pt seen, discussed with staff. Reports feeling "a little better" though continues to report poor sleep and feelings of desperation related to her ongoing Bipolar symptoms. We reviewed again potential changes to her meds and she is agreeable to a retrial of prazosin for sleep. This should help with her nightmares and sleep continuity. The risks, benefits and alternatives of this are reviewed including potential hypotension in combination with doxepin. Underwent ECT this morning without complication. Objective: Vital Signs Temp Pulse Resp BP Pulse Ox 36.6 C 97 16 126/80 H 98 08/24/16 11:15 08/24/16 11:15 08/24/16 11:15 08/24/16 11:15 08/24/16 11:15 35" - Time Spent With Patient Time Spent With Patient: 35" ICD10 Worksheet Patient Problems: Problems Problem Status Onset Bipolar disorder Acute Acute electrocardiogram changes Acute Bipolar 2 disorder Acute Evaluation by medical service required Acute Narcotic overdose Acute Severe major depression Acute Suicidal ideation Acute
[2016-08-24] MEDS: HYDROCODONE/APAP 5/325 TAB PO PRN (16:27)
[2016-08-24] MEDS: DOXEPIN HCL 25 MG CAP PO SCH (17:25)
[2016-08-24] MEDS: QUEtiapine FUMARATE 300 MG TAB PO SCH (17:26)
[2016-08-24] MEDS: BELSOMRA PO SCH (17:27)
[2016-08-24] MEDS: PRAZOSIN HCL 1 MG CAP PO SCH (20:25)
[2016-08-25] MEDS: FLUTICASONE NASAL 120 SPRAYS/16 GM MDI EACHNARE SCH (09:44)
[2016-08-25] MEDS: MAGNESIUM OXIDE 400 MG TAB PO SCH (09:44)
[2016-08-25] MEDS: PANTOPRAZOLE SODIUM 40 MG TAB PO SCH (09:44)
[2016-08-25] MEDS: metFORMIN HCL 500 MG TAB PO SCH ×2 (09:44→17:13)
[2016-08-25] MEDS: HYDROCODONE/APAP 5/325 TAB PO PRN (10:32)
--- NOTE | 2016-08-25 11:47 | SOAPPROG ---
SOAP Progress Note Assessment/Plan: Assessment: Plan: 08/23/16 17:36 Improving. Will CCM, consider adding lamotrigine. ECT tomorrow. 08/24/16 16:11 Some improvement. Remains tenuous. Will start prazosin, monitor. 08/25/16 11:49 Continued improvement. CCM. ECT tomorrow, likely d/c after treatment if all is well. Subjective: Pt seen, discussed with staff. Reports sleeping well last night with prazosin. More upbeat though remains anxious about going home. She notes benefit from ECT. C/o h/a today and requests more hydrocodone. I limit it to two 5/325 tabs per day. Objective: Vital Signs Temp Pulse Resp BP Pulse Ox 36.6 C 105 H 14 121/63 H 96 08/25/16 06:26 08/25/16 06:26 08/25/16 06:26 08/25/16 06:26 08/25/16 06:26 MSE: Calm, coop. Affect is blunted, stable, approp. Mood is "OK." TP linear. TC reveals no psychosis. No active SI, though states she would feel unsafe out of the hospital at this time. - Time Spent With Patient Time Spent With Patient: 25" - Pending Discharge Pending Discharge Within 24 Hours: Yes Pending Discharge Date: 08/26/16 Pending Discharge Time: 11:00 ICD10 Worksheet Patient Problems: Problems Problem Status Onset Bipolar disorder Acute Acute electrocardiogram changes Acute Bipolar 2 disorder Acute Evaluation by medical service required Acute Narcotic overdose Acute Severe major depression Acute Suicidal ideation Acute
[2016-08-25] MEDS: BELSOMRA PO SCH ×2 (17:13→17:28)
[2016-08-25] MEDS: QUEtiapine FUMARATE 300 MG TAB PO SCH (17:13)
[2016-08-25] MEDS: DOXEPIN HCL 25 MG CAP PO SCH (17:13)
[2016-08-25] MEDS: PRAZOSIN HCL 1 MG CAP PO SCH (19:10)
[2016-08-26] MEDS: PANTOPRAZOLE SODIUM 40 MG TAB PO SCH (06:40)
[2016-08-26] MEDS: FLUTICASONE NASAL 120 SPRAYS/16 GM MDI EACHNARE SCH (09:59)
[2016-08-26] MEDS: MAGNESIUM OXIDE 400 MG TAB PO SCH (09:59)
[2016-08-26] MEDS: metFORMIN HCL 500 MG TAB PO SCH (09:59)
[2016-08-26 11:39] VITALS: BP 135/83; PULSE 124; RESP 14; TEMP 97.6; O2SAT 98
== END 2016-08-26 11:45 | disposition home or self-care (01) | DRG 885 ==
LOC: BBEH 19:55
PROVIDERS: ADMIT Psychiatry & Neurology Psychiatry; ATTEND Psychiatry & Neurology Psychiatry
PROC: GZB0ZZZ Electroconvulsive Therapy, Unilateral-Single Seizure (ICD-10-PCS; principal; 2016-08-24)
DX: F31.4 Bipolar disorder, current episode depressed, severe, without psychotic features (principal)
CPT/HCPCS: 80305; G0480; J0330; J1200; J2060; J2250; J2405; J2704; J3010

== ENCOUNTER 2016-09-26 15:06 | Inpatient (IN) | payer OTHER, MEDICAID ==
--- NOTE | 2016-09-26 15:45 | EDPHY ---
HPI/HX/ROS/PE/MDM Narrative: CHIEF COMPLAINT: Mental health evaluation HPI: This patient is a 26 year old female with history of bipolar disorder presenting with suicidal ideation, which began this morning around 2:00am. She states she has felt quite manic lately. She was planning to take a bottle of pills, but did not act on this and woke her mother instead. She has had ECT in the past and is scheduled for another procedure this Monday with Dr. Montana, and would like to be admitted until then. REVIEW OF SYSTEMS: Aside from elements discussed in the HPI, a comprehensive 10-point review of systems was reviewed and is negative. PMH: Bipolar disorder SOCIAL HISTORY: PHYSICAL EXAM: General:Patient is alert, in no acute distress. ENT:Eyes are normal to inspection. ENT inspection normal. Neck: Normal inspection. Full range of motion. Respiratory:No respiratory distress. Breath sounds normal bilaterally. Cardiovascular: Regular rate and rhythm. Strong peripheral pulses. Normal cap refill. Abdomen:The abdomen is nontender to palpation. There are no peritoneal signs. There are normal bowel sounds. Back: Normal to inspection. No tenderness to palpation. Skin: Normal color. No rash. Warm and dry. Extremities: Normal appearance. Full range of motion. Neuro: Oriented x3. Normal motor function. Normal sensory function. Portions of this note were transcribed by an ED scribe. I personally performed the history, physical exam, and medical decision making; and confirm the accuracy of the information in the transcribed note. ED Course: 20:57 Patient accepted for admission to [address] [place] [address]. MDM: Patient medically clear for inpatient psychiatric admission. - Data Points Laboratory Results: Laboratory Results 09/26/16 15:38 09/26/16 15:38 09/26/16 09/26/16 09/26/16 15:50 15:38 15:38 WBC 5.93 10^3/uL 10^3/uL (3.80-9.50) RBC 4.64 10^6/uL 10^6/uL (4.18-5.33) Hgb 14.6 g/dL g/dL (12.6-16.3) Hct 41.8 % % (38.0-47.0) MCV 90.1 fL fL (81.5-99.8) MCH 31.5 pg pg (27.9-34.1) MCHC 34.9 g/dL g/dL (32.4-36.7) RDW 11.8 % % (11.5-15.2) Plt Count 321 10^3/uL 10^3/uL (150-400) MPV 10.4 fL fL (8.7-11.7) Neut % (Auto) 71.8 % % (39.3-74.2) Lymph % (Auto) 22.1 % % (15.0-45.0) Andrews % (Auto) 5.1 % % (4.5-13.0) Eos % (Auto) 0.2 % L % (0.6-7.6) Baso % (Auto) 0.3 % % (0.3-1.7) Nucleat RBC Rel Count 0.0 % % (0.0-0.2) Absolute Neuts (auto) 4.26 10^3/uL 10^3/uL (1.70-6.50) Absolute Lymphs (auto) 1.31 10^3/uL 10^3/uL (1.00-3.00) Absolute Monos (auto) 0.30 10^3/uL 10^3/uL (0.30-0.80) Absolute Eos (auto) 0.01 10^3/uL L 10^3/uL (0.03-0.40) Absolute Basos (auto) 0.02 10^3/uL 10^3/uL (0.02-0.10) Absolute Nucleated RBC 0.00 10^3/uL 10^3/uL (0-0.01) Immature Gran % 0.5 % % (0.0-1.1) Immature Gran # 0.03 10^3/uL 10^3/uL (0.00-0.10) Sodium 140 mEq/L mEq/L (134-144) Potassium 4.3 mEq/L mEq/L (3.5-5.2) Chloride 107 mEq/L mEq/L (97-110) Carbon Dioxide 17 mEq/l L mEq/l (22-31) Anion Gap 16 mEq/L mEq/L (8-16) BUN 7 mg/dL mg/dL (7-23) Creatinine 0.9 mg/dL mg/dL (0.6-1.0) Estimated GFR > 60 Glucose 85 mg/dL mg/dL (70-100) Calcium 9.6 mg/dL mg/dL (8.5-10.4) Beta HCG, Quant < 2.39 mIU/mL mIU/mL (0-4.83) Urine Opiates Screen NEGATIVE (NEGATIVE) Urine Barbiturates NEGATIVE (NEGATIVE) Ur Phencyclidine Scrn NEGATIVE (NEGATIVE) Ur Amphetamine Screen NEGATIVE (NEGATIVE) U Benzodiazepines Scrn NEGATIVE (NEGATIVE) Urine Cocaine Screen NEGATIVE (NEGATIVE) U Marijuana (THC) Screen NEGATIVE (NEGATIVE) Ethyl Alcohol < 10 mg/dL mg/dL (0-10) General Time Seen by Provider: 09/26/16 15:42 Initial Vital Signs: Initial Vital Signs Temperature (C) 36.8 C 09/26/16 15:39 Heart Rate 96 09/26/16 15:39 Respiratory Rate 15 09/26/16 15:39 Blood Pressure 143/96 H 09/26/16 15:39 O2 Sat (%) 98 09/26/16 15:39 O2 Delivery Mode Room Air Allergies/Adverse Reactions: ketorolac tromethamine [From Toradol] Allergy (Intermediate, Verified 08/21/16 12:22) Penicillins Allergy (Intermediate, Verified 08/21/16 12:22) sumatriptan succinate [From Imitrex] Allergy (Intermediate, Verified 08/21/16 12 :22) Home Medications: Medication Instructions Recorded Doxepin HCl [SINEquan] 25 mg PO HS #30 cap 06/10/16 Fluticasone Nasal [Flonase Nasal 1 sprays EACHNARE DAILY #0 mdi 06/10/16 [place]] Ondansetron Odt [Zofran Odt 4 mg 4 mg PO Q6HRS PRN #0 tab 06/10/16 (*)] Pantoprazole Sodium [Protonix 40mg 40 mg PO DAILY #0 tab 06/10/16 (*)] metFORMIN HCL [Glucophage 500 mg 1,000 mg PO BIDMEAL #0 tab 06/10/16 (*)] Hydrocodone/APAP 5/325 [[place] 1 tab PO Q4 PRN #6 tab 08/26/16 5/325 (*)] Magnesium Oxide [Magnesium Oxide 400 mg PO DAILY #0 tab 08/26/16 400 mg (*)] Prazosin HCl [Minipress] 2 mg PO HS 09/26/16 Quetiapine Fumarate [Seroquel] 800 mg PO HS 09/26/16 Suvorexant [Belsomra] 20 mg PO HS 09/26/16 Departure - Departure Disposition: [facility] IP Clinical Impression: Suicidal ideation Condition: Fair Report Scribed for: Yang Worthy Report Scribed by: Tere Brownlee Date of Report: 09/26/16 Time of Report: 15:45
[2016-09-26 17:32] LABS: % IMMATURE GRANULYOCYTES 0.5 % (0.0-1.1); ABSOLUTE IMMATURE GRANULOCYTES 0.03 10^3/uL (0.00-0.10); ADD DIFF? NO; ADD MORPH? NO; ADD SCAN? NO; ATYPICAL LYMPHOCYTE FLAG 0 (0-99); FRAGMENT RBC FLAG 0 (0-99); HEMATOCRIT 41.8 % (38.0-47.0); HEMOGLOBIN 14.6 g/dL (12.6-16.3); LEFT SHIFT FLG 0 (0-99); LIPEMIA HEMOLYSIS FLAG 90 (0-99); MEAN CELL HEMOGLOBIN 31.5 pg (27.9-34.1); MEAN CELL HEMOGLOBIN CONCENTR. 34.9 g/dL (32.4-36.7); MEAN CELL VOLUME 90.1 fL (81.5-99.8); MEAN PLATELET VOLUME 10.4 fL (8.7-11.7); PLATELET CLUMPS FLAG 0 (0-99); PLATELET COUNT 321 10^3/uL (150-400); RED BLOOD CELL COUNT 4.64 10^6/uL (4.18-5.33); RED CELL DISTRIBUTION WIDTH 11.8 % (11.5-15.2)
[2016-09-26 17:38] LABS: ANION GAP 16 mEq/L (8-16); CALCIUM 9.6 mg/dL (8.5-10.4); CARBON DIOXIDE 17 mEq/l (22-31); CHLORIDE 107 mEq/L (97-110); CREATININE 0.9 mg/dL (0.6-1.0); ETHANOL SERUM < 10 mg/dL (0-10); GLOMERULAR FILTRATION RATE > 60; GLUCOSE 85 mg/dL (70-100); POTASSIUM 4.3 mEq/L (3.5-5.2); SODIUM 140 mEq/L (134-144)
[2016-09-26] MEDS ORDERED: MAGNESIUM HYDROXIDE 30 ML UDCUP PO PRN (23:32)
[2016-09-26] MEDS ORDERED: ACETAMINOPHEN 325 MG TAB PO PRN (23:32)
[2016-09-26] MEDS ORDERED: MAG HYDROX/AL HYDROX/SIMETH 30 ML UDCUP PO PRN (23:32)
[2016-09-26] MEDS ORDERED: NICOTINE POLACRILEX 2 MG GUM B PRN (23:32)
[2016-09-26] MEDS ORDERED: ONDANSETRON DISINTEGRATING 4 MG TAB PO PRN (23:33)
[2016-09-26] MEDS: DOXEPIN HCL 25 MG CAP PO SCH (23:42)
[2016-09-26] MEDS ORDERED: PRAZOSIN HCL 1 MG CAP PO SCH (23:45)
[2016-09-26] MEDS ORDERED: QUEtiapine FUMARATE 300 MG TAB PO SCH (23:45)
[2016-09-26] MEDS: SUVOREXANT 20 MG PO SCH (23:53)
[2016-09-27] MEDS: metFORMIN HCL 500 MG TAB PO SCH ×2 (08:29→18:02)
[2016-09-27] MEDS: PANTOPRAZOLE SODIUM 40 MG TAB PO SCH (08:29)
[2016-09-27] MEDS: MAGNESIUM OXIDE 400 MG TAB PO SCH (09:25)
[2016-09-27] MEDS: FLUTICASONE NASAL 120 SPRAYS/16 GM MDI EACHNARE SCH (09:26)
[2016-09-27] MEDS: HYDROCODONE/APAP 5/325 TAB PO PRN ×2 (11:03→15:25)
--- NOTE | 2016-09-27 13:13 | BAPA ---
[f rep st] ADMISSION PSYCHIATRIC ASSESSMENT DATE OF SERVICE: 09/27/2016 REASON FOR ADMISSION: Patient is a 26-year-old female, well known to us from previous [place]izations, as well as ongoing outpatient ECT. She is a patient of Dr. Srinivas Mcmanus, a nd is receiving weekly maintenance ECT treatment. She has a history of bipolar disorder, and has a pattern of erosion of sleep in the emergence of hypomania. With this will come feelings of helpless ness and hopelessness, and thoughts of suicide. She states that she recently traveled to [place] to visit family, and while she was there she began to not sleep well. She states that she did not sleep more than 2 hours for the preceding 4 days before coming into the hospital. She said she was feeling more helpless, hopeless and suicidal, and drove herself to the emergency department for admi ssion. She was evaluated by the [facility] worker in the emergency department, and thought to meet criteri a for admission, and was admitted last night. Today, she states that she is "really afraid I am get ting manic." She reports increased anxiety, and decreased sleep, which she describes as "racing tho ughts." She states that she feels unsafe out of the hospital, and "I need to get completely stable. " I received a message from her mother on my office phone that she had a "strange reaction" to ECT last week. She received ECT on a Monday morning, and when she returned to her home in [facility], her mother states that she took her evening medications about 6 o'clock and went to sleep. He r mother states that she then slept until Monday morning. She states that this is unusual for her. She states that she developed a blister on the side of her head, and then one on her hand, and was taken to the emergency department for evaluation. She is unable to describe this any further, and s tates that she seems to have returned to her normal mental status, starting on Monday, and the emerg ency department found nothing wrong with her, and she was discharged home. She states that she does not have any further skin lesions at this time, and actually then had trouble sleeping for the 4 or 5 days in between. PAST PSYCHIATRIC HISTORY: Significant for several previous psychiatric admissions to our hospital, in June of this year and then again in August. These are again in a similar context, where she will have an erosion of sleep, emergence of hypomania or mixed symptoms, and thoughts of suicide. She is receiving ongoing maintenance ECT with Dr. Montana on a weekly basis. Her last treatment was 2016. She sees a therapist and a prescriber at [facility] in [place], [place]. She recently switched prescribers to the nurse practitioner through [facility], and stat es that she has seen him twice. She states that about 2 weeks ago, he increased her Seroquel from 600 to 800 mg, though has left everything else the same. ALLERGIES: Ketorolac, penicillin, and sumatriptan. CURRENT MEDICATIONS: Doxepin 25 mg h.s., Flonase nasal spray once a day, magnesium oxide 400 mg yary ly, metformin 1000 mg b.i.d., Protonix 40 mg daily, Seroquel 800 mg at h.s., and prazosin 2 mg at h. s. PAST MEDICAL HISTORY: Significant for past history of chronic headaches and reflux disease. SOCIAL HISTORY: The patient lives with her mother and grandmother in [place], [place]. Her mother is a public area supervisor at the [employer]. She receives social security [place] income due to her psychiatric condition. She is also the primary caregiver for her grandmoth er, who has dementia. The patient states that the summer is difficult for her, due to multiple loss es and anniversaries of these losses, including her father's , and these are typically triggeri ng for her. She states that she will develop nightmares and this will further erode her sleep, and can set off the cycling of her mood. SUBSTANCE ABUSE HISTORY: The patient denies any illicit use of substances at this time. FAMILY HISTORY: Noncontributory. ADMISSION LABORATORY: CBC is normal. Serum chemistries are normal. Beta hCG is negative. Urine d rug screen is negative for all substances. Alcohol is less than detectable. MENTAL STATUS EXAMINATION: Reveals a well groomed, appropriately dressed, healthy-appearing Caucasi an female. She interacts well with the examiner, displaying euthymic, stable and appropriate affect . Her speech is normal in production, tone, rate and flow. Her mood is described as "manic." Her thought process is linear and goal directed. Her thought content reveals no evidence of psychosis. She is alert and oriented to person, place, time, and situation, and her sensorium is clear. Her a ttention and concentration are adequate to the interview, and there is no evidence of distractibilit y. Her intellect appears to be at least average, as evidenced by her educational history, fund of k nowledge, and vocabulary. She endorses ongoing thoughts of suicide, with no specific plan, and is a ble to contract for safety on the unit. She states several times she would feel unsafe off the unit . Her insight and judgment appear to be good. IMPRESSION: Bipolar 1 disorder, most recent episode, mixed, with treatment resistant features, chronic illness, recurrent illness, recent decline in overall functioning. Impossible phase of life issues. The patient is a 26-year-old female with a history of bipolar disorder. She had been doin g reasonably well on maintenance therapy for more than a year, but recently seems to have begun some more frequent cycling. She has had several mixed episodes that have had suicidal thoughts accompan soniya them. She currently describes feeling that way, and feels unsafe to be out of the hospital. PLAN: 1. [facility] on an M1 hold. 2. Continue the patient's previous outpatient medications, including increasing the prazosin to 3 m g. 3. We will discuss with the patient the events after last ECT, and consider whether we should proce ed with ECT, though at this time, I am inclined to do so. If nothing else, we could observe her in the hospital setting to see how she does. 4. We will engage the patient in individual group and milieu psychotherapies, and see if there is o ther ways we could stimulate her outpatient participation, as she is only seeing a therapist every c ouple weeks and is not participating in any other kinds of groups. 5. Estimated length of stay is 3-5 days. /[id number]/MODL
--- NOTE | 2016-09-27 13:38 | BCON ---
[f rep st] BEHAVIORAL HEALTH CONSULTATION INTERNAL MEDICINE CONSULTATION DATE OF CONSULTATION: 09/27/2016 REFERRING PHYSICIAN: Grant James MD REASON FOR REFERRAL: Medical clearance for inpatient behavioral health stay. HISTORY OF PRESENT ILLNESS: This patient was referred to [facility] inpatient behavioral health unit for continuing ECT and a safe environment. She had developed insomnia and suicidal ideation. She was feeling manic and had a plan to take a bottle of pills. She was evaluated by the mental health team and admitted for further psychiatric care. She currently is without any acute complaints. PAST MEDICAL HISTORY: 1. Bipolar disorder. 2. Seasonal allergic rhinitis. 3. Chronic headaches. 4. Polycystic ovarian syndrome. 5. History of peptic ulcers. PAST SURGICAL HISTORY: 1. Cholecystectomy. 2. Cervical diskectomy. 3. Tonsillectomy. MEDICATIONS: Prior to admission: 1. Doxepin 25 mg p.o. at bedtime. 2. Fluticasone 1 spray to each naris daily. 3. Ondansetron 4 mg p.o. q.6 hours p.r.n. 4. Pantoprazole 40 mg p.o. daily. 5. Metformin 1000 mg p.o. twice daily. 6. Hydrocodone/acetaminophen 1 tablet q.4 hours p.r.n. 7. Magnesium oxide 400 mg p.o. daily. 8. Prazosin 2 mg p.o. at bedtime. 9. Quetiapine 800 mg p.o. at bedtime. 10. Suvorexant 20 mg p.o. at bedtime. ALLERGIES: Listed to ketorolac, penicillin, and sumatriptan. SOCIAL HISTORY: She lives with her grandmother in [place]. She has a history of alcohol abuse. She is a nonsmoker. She is not working and reports that she is on disability for bipolar disorder. FAMILY HISTORY: Noncontributory. REVIEW OF SYSTEMS: She reports that she had a recent skin burn on her forehead from a curling iron. She denies headache. She reports that she gets nausea after ECT and thus has a prescription for ondansetron, but currently has no nausea, vomiting, constipation, or diarrhea. Other than that, a 10-point review of systems is negative. She reports that she does not snore and that she does not nap during the day. She engages in regular exercise. PHYSICAL EXAMINATION: VITAL SIGNS: Blood pressure is 118/70, heart rate is 103 , respiratory rate is 16, oxygen saturation is 96% on room air. Temperature is 36.6 degrees centigrade. Her weight is 64.9 kg for a body mass index of 23.8. HEENT: Extraocular movements are intact. Pupils are equal, round, and reactive to light. Mucous membranes are moist. Dentition is in good condition. She has a non-crowded airway, Mallampati class 1. NECK: Supple. HEART: There is regular rate and rhythm with no murmurs, rubs, or gallops. LUNGS: Clear to auscultation bilaterally. ABDOMEN: Soft, nontender, nondistended with normoactive bowel sounds. EXTREMITIES: There is no cyanosis , clubbing, or edema. NEUROLOGIC: She is alert and oriented x3. Cranial nerves 2 through 12 are grossly intact. There is no focal weakness. Sensation is intact to light touch and gait is within normal limits. LABORATORY STUDIES: Ordered in the emergency department: CBC was overall within normal limits, but for a minor decrement of eosinophils of no clinical significance. Serum chemistry showed a slightly low carbon dioxide of 17; otherwise, renal function and electrolytes were within normal limits. Beta hCG was negative for . Toxicology screen in the serum was negative for ethyl alcohol, and the urine was negative for any substances of abuse. ASSESSMENT/RECOMMENDATIONS: 1. Bipolar disorder, pending further evaluation and management per Psychiatry and the mental health team. 2. Headaches, asymptomatic at present. Acetaminophen has been prescribed as well as hydrocodone/acetaminophen combination and these should be more than adequate. Nausea occurs after ECT; continue ondansetron. 3. Polycystic ovary syndrome for which she takes metformin. Continue metformin. I see no medical contraindications to this patient's continued stay in the inpatient behavioral health unit or to any psychiatric medications or procedures. Thank you very much for including me in the care of this patient and please do not hesitate to contact me or the hospitalist service should there be a need for further medical evaluation. /[id number]/MODL MTDD
[2016-09-27] MEDS: QUEtiapine FUMARATE 200 MG TAB PO SCH (18:04)
[2016-09-27] MEDS: DOXEPIN HCL 25 MG CAP PO SCH (18:13)
[2016-09-27] MEDS: PRAZOSIN HCL 1 MG CAP PO SCH (18:13)
[2016-09-27] MEDS: SUVOREXANT 20 MG PO SCH (20:21)
[2016-09-27] MEDS ORDERED: QUEtiapine FUMARATE 200 MG TAB PO SCH (21:00)
[2016-09-27] MEDS ORDERED: QUETIAPINE FUMARATE 800 MG PO SCH (21:00)
[2016-09-28] MEDS: PANTOPRAZOLE SODIUM 40 MG TAB PO SCH (06:28)
[2016-09-28] MEDS ORDERED: NS 1,000 ML IV ONE (07:00)
[2016-09-28] MEDS ORDERED: ONDANSETRON DISINTEGRATING 4 MG TAB PO ONE (07:00)
[2016-09-28] MEDS ORDERED: LIDOCAINE 2% 5 ML SDV ID ONE (07:00)
[2016-09-28] MEDS ORDERED: CITRIC ACID/SODIUM CITRATE 30 ML UDCUP PO ONE (07:00)
[2016-09-28] MEDS: FLUTICASONE NASAL 120 SPRAYS/16 GM MDI EACHNARE SCH (08:05)
[2016-09-28] MEDS ORDERED: ONDANSETRON DISINTEGRATING 4 MG TAB ONE (09:13)
[2016-09-28] MEDS ORDERED: CITRIC ACID/SODIUM CITRATE 30 ML UDCUP ONE (09:13)
[2016-09-28] MEDS ORDERED: PROMETHAZINE HCL 25 MG TAB ONE (09:13)
[2016-09-28] MEDS ORDERED: PROMETHAZINE HCL 25 MG TAB PO PRN (09:14)
[2016-09-28] MEDS ORDERED: MIDAZOLAM 2 MG/2 ML VIAL ONE (09:37)
[2016-09-28] MEDS ORDERED: PROPOFOL 200 MG/20 ML VIAL ONE (09:38)
[2016-09-28] MEDS ORDERED: ETOMIDATE 20 MG/10 ML VIAL ONE (09:38)
[2016-09-28] MEDS ORDERED: ONDANSETRON 4 MG/2 ML VIAL ONE (09:38)
[2016-09-28] MEDS ORDERED: GLYCOPYRROLATE 0.2 MG/1 ML VIAL ONE (09:38)
[2016-09-28] MEDS ORDERED: fentaNYL 100 MCG/2 ML INJ ONE (09:38)
[2016-09-28] MEDS ORDERED: ROCURONIUM 50 MG/5 ML VIAL ONE (09:39)
[2016-09-28] MEDS ORDERED: LORazepam 2 MG/ML INJ ONE (09:39)
[2016-09-28] MEDS ORDERED: SUCCINYLCHOLINE CHLORIDE 200 MG/10 ML VIAL ONE (09:40)
[2016-09-28] MEDS: metFORMIN HCL 500 MG TAB PO SCH ×2 (11:01→17:31)
[2016-09-28] MEDS: MAGNESIUM OXIDE 400 MG TAB PO SCH (11:01)
[2016-09-28] MEDS: HYDROCODONE/APAP 5/325 TAB PO PRN ×2 (14:08→18:00)
--- NOTE | 2016-09-28 15:05 | SOAPPROG ---
SOAP Progress Note Assessment/Plan: Assessment: Plan: Subjective: Pt seen, discussed with staff. Reports feeling "a lot better after ECT today." Slept marginally last night and reported feeling depressed this morning. Underwent bilateral ECT without complication. Objective: Vital Signs Temp Pulse Resp BP Pulse Ox 36.6 C 105 H 16 129/78 H 97 09/28/16 14:16 09/28/16 14:16 09/28/16 14:16 09/28/16 14:16 09/28/16 14:16 MSE: Well groomed, pleasant and coop. Affect is blunted, stable, brighter after ECT. Mood is "better now." TP is linear. TC reveals no psychosis. SI persists, but is "a lot less." Noted 2/3 on BDI this morning. - Time Spent With Patient Time Spent With Patient: 35" ICD10 Worksheet Patient Problems: Problems Problem Status Onset Suicidal ideation Acute Acute electrocardiogram changes Acute Bipolar 2 disorder Acute Bipolar disorder Acute Evaluation by medical service required Acute Narcotic overdose Acute Severe major depression Acute Suicidal ideation Acute
[2016-09-28] MEDS: DOXEPIN HCL 25 MG CAP PO SCH (17:29)
[2016-09-28] MEDS: PRAZOSIN HCL 1 MG CAP PO SCH (17:30)
[2016-09-28] MEDS: QUEtiapine FUMARATE 200 MG TAB PO SCH (17:31)
[2016-09-28] MEDS: SUVOREXANT 20 MG PO SCH (20:00)
[2016-09-29] MEDS: metFORMIN HCL 500 MG TAB PO SCH ×2 (08:06→18:01)
[2016-09-29] MEDS: PANTOPRAZOLE SODIUM 40 MG TAB PO SCH (08:07)
[2016-09-29] MEDS: MAGNESIUM OXIDE 400 MG TAB PO SCH (08:07)
[2016-09-29] MEDS: FLUTICASONE NASAL 120 SPRAYS/16 GM MDI EACHNARE SCH (08:07)
[2016-09-29] MEDS: HYDROCODONE/APAP 5/325 TAB PO PRN ×4 (08:08→19:30)
--- NOTE | 2016-09-29 16:02 | SOAPPROG ---
SOAP Progress Note Assessment/Plan: Assessment: Plan: 09/29/16 16:01 Doing much better. Likely d/c tomorrow after ECT is all is well. Subjective: Pt seen, discussed with staff. REports feeling "a lot better." C/o continued h/ a. Pt's mother is concerned about the origin of her apparent price to her face and hand. She continues to insist that they are from a "curling iron when you' re manic." Slept well last night. Objective: Vital Signs Temp Pulse Resp BP Pulse Ox 36.3 C 97 18 123/60 H 90 L 09/29/16 05:54 09/29/16 05:54 09/29/16 05:54 09/29/16 05:54 09/29/16 05:54 MSE: Calm, coop. Affect is slightly blunted, stable, approp. Mood is "better. " TP linear. TC reveals no psychosis. Denies active SI. - Time Spent With Patient Time Spent With Patient: 15" - Pending Discharge Pending Discharge Within 24 Hours: Yes Pending Discharge Date: 09/30/16 Pending Discharge Time: 11:00 ICD10 Worksheet Patient Problems: Problems Problem Status Onset Suicidal ideation Acute Acute electrocardiogram changes Acute Bipolar 2 disorder Acute Bipolar disorder Acute Evaluation by medical service required Acute Narcotic overdose Acute Severe major depression Acute Suicidal ideation Acute
[2016-09-29] MEDS: QUEtiapine FUMARATE 200 MG TAB PO SCH (18:00)
[2016-09-29] MEDS: DOXEPIN HCL 25 MG CAP PO SCH (18:00)
[2016-09-29] MEDS: PRAZOSIN HCL 1 MG CAP PO SCH (18:01)
[2016-09-29] MEDS: SUVOREXANT 20 MG PO SCH (18:45)
[2016-09-30] MEDS ORDERED: NS 1,000 ML IV ONE (05:00)
[2016-09-30] MEDS ORDERED: LIDOCAINE 2% 5 ML SDV ID ONE (05:00)
[2016-09-30] MEDS ORDERED: ONDANSETRON DISINTEGRATING 4 MG TAB PO ONE (05:00)
[2016-09-30] MEDS ORDERED: CITRIC ACID/SODIUM CITRATE 30 ML UDCUP PO ONE (05:00)
[2016-09-30] MEDS: FLUTICASONE NASAL 120 SPRAYS/16 GM MDI EACHNARE SCH (08:19)
[2016-09-30] MEDS: PANTOPRAZOLE SODIUM 40 MG TAB PO SCH (08:19)
--- NOTE | 2016-09-30 10:11 | CPEKG ---
Heart Rate: 94 RR Interval: 638 P-R Interval: 148 QRSD Interval: 98 QT Interval: 364 QTC Interval: 456 P [place]: 74 QRS [place]: 98 T Wave [place]: 74 EKG Severity - NORMAL ECG - EKG Impression: SINUS RHYTHM Electronically Signed By: Jose F Edge 01-Oct-2016 10:20:12
[2016-09-30] MEDS: metFORMIN HCL 500 MG TAB PO SCH (11:58)
[2016-09-30] MEDS: MAGNESIUM OXIDE 400 MG TAB PO SCH (11:58)
[2016-09-30 12:38] VITALS: BP 141/76; PULSE 108; RESP 16; TEMP 97.5; O2SAT 100
--- NOTE | 2016-09-30 17:35 | BDS ---
[f rep st] BEHAVIORAL HEALTH DISCHARGE SUMMARY REASON FOR ADMISSION: The patient is a 26-year-old female known to us from previous inpat ient and outpatient treatments. She has a history of treatment-resistant bipolar depression and rec urrent hypomania. She stated that she felt like her mood was elevating over the past week, and her sleep had been deteriorating. She claimed to have slept 2 hours in the preceding 4 days prior to co sigifredo to the hospital. She states that when this happens, she begins to have "racing thoughts," and this leads to thoughts of suicide. She presented to the ED of her own accord, requesting hospitaliz ation due to the suicidal thoughts. A full description of events preceding admission can be found in her admission history dated 017. ADMITTING DIAGNOSES: Bipolar 1 disorder, most recent episode mixed, with treatment resistant tere es. Chronic illness, recurrent illness, recent decline in overall functioning, and possible phase o f life issues. ADMITTING PHYSICAL EXAMINATION: Performed by Dr. Natalio Almanza, reveals no acute physical finding s. ADMISSION LABORATORY: CBC is normal. Serum chemistries are normal. Urine drug screen is normal. The EKG performed in the hospital was normal. HOSPITAL COURSE: The patient was admitted to the [facility] inpatient unit on an M1 h old initially. This was converted to a voluntary status later. She presented very well and while s he complained of racing thoughts, it certainly was difficult to observe those. She stated she slept poorly the 1st night with staff observing 5-6 hours. She states that she would wake up frequently and then go back to sleep. She also complained of a persistent daily headache and requested hydroco done for this. We evaluated her medications and she agreed to a trial of increasing the prazosin fr om 2 to 3 mg. She tolerated this well with no side effects. On the 2nd night of hospitalization, s he slept quite well. She did have ECT on that date, though it is unclear if the prazosin or the ECT or the combination was helpful. On the next day of hospitalization, she slept slightly less well b ut still slept through the night. The patient's hospitalization was uncomplicated. She received ECT twice, on Monday and Monday du ring her stay, and requested discharge after treatment on Monday afternoon. Her mother came in from [place] to pick her up, and she was transported back home by her mother. One issue that arose during her stay was the fact that she had blisters on her left frontotemporal a osiel and her left wrist. She states she burned herself with a curling iron and the wounds looked carmen y convincingly like price, especially ones caused by a curling iron. Her mother insisted that the lesvia mckeon does not own a curling iron and that while she does own 1, that she knows the patient did not use it. The patient remained adamant that she did. The mother was concerned that these wounds cou ld have been caused by the patient's medications, and I assured her that this is not the case, this is not any type of an injury that medication side effects or toxicity would mimic. CONDITION AT DISCHARGE: Stable. The patient's affect was euthymic, stable and appropriate. She wa s interacting appropriately with others, and was forward thinking and hopeful. She was voicing no t houghts of suicide. DISCHARGE DIAGNOSES: Bipolar 1 disorder, most recent episode mixed, severe, without psychosis. Edilberto atment-resistant features. Chronic illness, recurrent illness. Decline in functioning over the las t 6 months. Some level of family conflict and phase of life issues. DISPOSITION: Patient left the hospital with her mother. FOLLOWUP: With [facility] in [place], [place], per previous appointments. LEGAL COURSE: Patient was converted to a voluntary status at the expiration of her M1 hold. /[id number]/MODL
== END 2016-09-30 13:30 | disposition home or self-care (01) | DRG 885 ==
LOC: BBEH 22:55
PROVIDERS: ADMIT Psychiatry & Neurology Psychiatry; ATTEND Psychiatry & Neurology Psychiatry
PROC: GZB4ZZZ Other Electroconvulsive Therapy (ICD-10-PCS; principal; 2016-09-26)
CPT/HCPCS: 80305; G0480; J0330; J1200; J2060; J2250; J2405; J2704; J3010